=== PATIENT | male | born 1985 | race Caucasian/White ===

== ENCOUNTER 2016-12-18 13:44 | Emergency (ER) | payer BC, OTHER ==
[~2016-12-18] VITALS: Ht 170.2 cm; Wt 70.9 kg
[~2016-12-18 13:44] MED LIST: HMLI SC; INSU3INJ3 SQ
[2016-12-18 13:54] VITALS: TEMP 36.8; Ht 170.2 cm; Wt 70.9 kg
[2016-12-18] MEDS ORDERED: SODIUM CHLORIDE 0.9% 1000ML 1,000 ML IV STA ×2 (14:08→15:34)
[2016-12-18] MEDS ORDERED: NVLGIPEN SQ (14:09)
--- NOTE | 2016-12-18 14:12 | EMERGENCY ROOM VISIT NOTE ---
History Report prepared by Blayneibradha: Wendy King Under the Supervision of: Dr. Dulce Sweet D.O. First contact with patient: 13:59 Chief Complaint: VOMITING Stated Complaint: VOMITING NOT ABLE TO KEEP DOWN WATER Nursing Triage Summary: vomiting since this am unable to keep water done. last time this happened dx with diabetic ketoacidosis History of Present Illness The patient is a 31 year old male who presents to the Emergency Room with complaints of persistent vomiting since earlier this morning. He states he was "vomiting once every 10 minutes" when his symptoms were the most severe this morning. He denies any hematemesis. He also experienced some diarrhea this morning. He admits he did drink alcohol last night. He reports the last time something similar happened, around 2 to 3 years ago, he was diagnosed with diabetic ketoacidosis. His BSG this morning in the ED was approximately 208 and he was able to take his Insulin this morning. He notes he did experience cold symptoms this past week, but does not believe he had any fevers. The patient denies any recent abdominal pain, chest pain, shortness of breath or pain or swelling in his legs. He also denies any recent sick contacts, travel or eating anything unusual or suspect recently. Source of History: patient Onset: earlier this morning Position: other (global) Timing: other (persistent) Associated Symptoms: + cough (and cold symptoms), + nausea, + diarrhea, No fevers, No chest pain, No SOB, No abdominal pain Review of Systems See HPI for pertinent positives & negatives. A total of 10 systems reviewed and were otherwise negative. Past Medical & Surgical Medical Problems: (1) Diabetes mellitus Family History Cancer FHx: gallbladder disease Heart disease Hypertension Social History Smoking Status: Never Smoker Alcohol Use: occasionally Marital Status: single Housing Status: lives alone Occupation Status: employed Current/Historical Medications Scheduled Insulin Aspart (Novolog Flexpen), 1 DOSE SQ SLIDING SCALE Insulin Detemir (Levemir Flextouch), 18 UNITS SQ AMPM Allergies Coded Allergies: Banana (Verified Adverse Reaction, Mild, VOMITING, 12/18/16) Physical Exam Vital Signs Date Time Temp Pulse Resp B/P (MAP) Pulse Ox O2 Delivery O2 Flow Rate FiO2 12/18/16 17:25 62 16 132/76 100 Room Air 12/18/16 15:42 78 16 123/74 100 Room Air 12/18/16 13:54 36.8 93 18 143/86 100 Room Air Physical Exam GENERAL: alert, well appearing, well nourished, no distress, non-toxic EYE EXAM: normal conjunctiva, PERRL and EOM's grossly intact OROPHARYNX: no exudate, no erythema, lips, buccal mucosa, and tongue normal and mucous membranes are dry NECK: supple, no nuchal rigidity, no adenopathy, non-tender LUNGS: Clear to auscultation. Normal chest wall mechanics HEART: no murmurs, S1 normal and S2 normal ABDOMEN: abdomen soft, non-tender, normo-active bowel sounds, no masses, no rebound or guarding. BACK: Back is symmetrical on inspection and there is no deformity, no midline tenderness, no CVA tenderness. SKIN: no rashes and no bruising UPPER EXTREMITIES: upper extremities are grossly normal. LOWER EXTREMITIES: No pitting edema. NEURO EXAM: Normal sensorium, cranial nerves II-XII grossly intact, normal speech, no gross weakness of arms, no gross weakness of legs. Medical Decision & Procedures ER Provider Diagnostic Interpretation: Radiology results have been interpreted by the radiologist and reviewed by me. ABDOMEN 2VIEW W/PA CHEST RTN CLINICAL HISTORY: vomiting nausea COMPARISON STUDY: 09/23/2014 FINDINGS: The soft tissues, psoas shadows, renal outlines and intestinal gas pattern appear normal. There is no evidence for bowel obstruction. There is no evidence for free intraperitoneal air. No abnormal abdominal calcifications are seen. A frontal view of the chest was performed and is unremarkable. IMPRESSION: Normal study. The above report was generated using voice recognition software. It may contain grammatical, syntax or spelling errors. Electronically signed by: Royal French M.D. 12/18/2016 3:07 PM Laboratory Results 12/18/16 14:02 Red Blood Count 5.39, Mean Corpuscular Volume 83.9, Mean Corpuscular Hemoglobin 30.1, Mean Corpuscular Hemoglobin Concent 35.8, Mean Platelet Volume 9.5, Neutrophils (%) (Auto) 87.0, Lymphocytes (%) (Auto) 9.5, Monocytes (%) (Auto) 2.5, Eosinophils (%) (Auto) 0.7, Basophils (%) (Auto) 0.1, Neutrophils # (Auto) 7.71, Lymphocytes # (Auto) 0.84, Monocytes # (Auto) 0.22, Eosinophils # (Auto) 0.06, Basophils # (Auto) 0.01 12/18/16 14:02 Test 12/18/16 13:58 12/18/16 14:02 12/18/16 15:01 12/18/16 16:32 Bedside Glucose 208 mg/dl (70-99) White Blood Count 8.86 K/uL (4.8-10.8) Red Blood Count 5.39 M/uL (4.7-6.1) Hemoglobin 16.2 g/dL (14.0-18.0) Hematocrit 45.2 % (42-52) Mean Corpuscular Volume 83.9 fL (80-100) Mean Corpuscular Hemoglobin 30.1 pg (25-34) Mean Corpuscular Hemoglobin Concent 35.8 g/dl (32-36) Platelet Count 222 K/uL (130-400) Mean Platelet Volume 9.5 fL (7.4-10.4) Neutrophils (%) (Auto) 87.0 % Lymphocytes (%) (Auto) 9.5 % Monocytes (%) (Auto) 2.5 % Eosinophils (%) (Auto) 0.7 % Basophils (%) (Auto) 0.1 % Neutrophils # (Auto) 7.71 K/uL (1.4-6.5) Lymphocytes # (Auto) 0.84 K/uL (1.2-3.4) Monocytes # (Auto) 0.22 K/uL (0.11-0.59) Eosinophils # (Auto) 0.06 K/uL (0-0.5) Basophils # (Auto) 0.01 K/uL (0-0.2) RDW Standard Deviation 39.3 fL (36.4-46.3) RDW Coefficient of Variation 13.0 % (11.5-14.5) Immature Granulocyte % (Auto) 0.2 % Immature Granulocyte # (Auto) 0.02 K/uL (0.00-0.02) Anion Gap 11.0 mmol/L (3-11) Est Creatinine Clear Calc Drug Dose 98.1 ml/min Estimated GFR () 113.0 Estimated GFR (Non- 97.5 BUN/Creatinine Ratio 15.8 (10-20) Calcium Level 9.0 mg/dl (8.5-10.1) Magnesium Level 2.1 mg/dl (1.8-2.4) Total Bilirubin 0.4 mg/dl (0.2-1) Aspartate Amino Transf (AST/SGOT) 20 U/L (15-37) Alanine Aminotransferase (ALT/SGPT) 26 U/L (12-78) Alkaline Phosphatase 68 U/L (45-117) Total Protein 8.9 gm/dl (6.4-8.2) Albumin 4.3 gm/dl (3.4-5.0) Globulin 4.6 gm/dl (2.5-4.0) Albumin/Globulin Ratio 0.9 (0.9-2) Lipase 72 U/L (73-393) Arterial Blood pH 7.33 (7.35-7.45) Arterial Blood Partial Pressure CO2 33 mmHg (35-46) Arterial Blood Partial Pressure O2 101 mm/Hg (80-95) Arterial Blood HCO3 17 mmol/L (19-24) Arterial Blood Oxygen Saturation 97.4 % (90-95) Arterial Blood Base Excess -7.5 mEq/L (-9-1.8) Arterial Blood Gas Delivery ROOM AIR Vladimir Test POS (POS) Urine Color YELLOW Urine Appearance CLEAR (CLEAR) Urine pH 5.0 (4.5-7.5) Urine Specific [place] 1.033 (1.000-1.030) Urine Protein NEG (NEG) Urine Glucose (UA) 3+ (NEG) Urine Ketones 3+ (NEG) Urine Occult Blood NEG (NEG) Urine Nitrite NEG (NEG) Urine Bilirubin NEG (NEG) Urine Urobilinogen NEG (NEG) Urine Leukocyte Esterase NEG (NEG) Test 12/18/16 16:45 Lactic Acid Level 2.4 mmol/L (0.4-2.0) Laboratory results per my review. Medications Administered Medications (Trade) Dose Ordered Sig/Blake Route Start Time Stop Time Status Last Admin Dose Admin Ondansetron HCl (Zofran 8mg Iv) 8 mg NOW ONCE IV 12/18/16 14:15 12/18/16 14:16 DC 12/18/16 14:15 8 MG Sodium Chloride 1,000 ml @ 999 mls/hr Q1H1M STAT IV 12/18/16 14:08 12/18/16 15:08 DC 12/18/16 14:08 999 MLS/HR Sodium Chloride 1,000 ml @ 999 mls/hr Q1H1M STAT IV 12/18/16 15:34 12/18/16 16:34 DC 12/18/16 15:34 999 MLS/HR Ondansetron HCl (ZOFRAN ODT 4MG Home Pack) 1 homepack UD ONCE PO 12/18/16 17:45 12/18/16 17:46 DC 12/18/16 17:45 1 HOMEPACK ECG Indication: vomiting Rate (beats per minute): 82 Rhythm: normal sinus Findings: no acute ischemic change, no ectopy, other (Normal [place], normal QRS, normal intervals, normal axis) ED Course 1403: The patient was evaluated in room A4B. A complete history and physical exam was performed. 1408: NSS 1000 ml @ 999 mls/hr IV. 1415: Zofran 8 mg IV. 1455: I reevaluated the patient. He is looking well and resting comfortably. 1534: NSS 1000 ml @ 999 mls/hr IV. 1720: Nursing informed me the patients repeat lactic acid has improved. 1730: I reevaluated the patient. He has tolerated PO intake and is feeling well. I discussed his results and discharge instructions and he verbalized complete understanding and agreement. 1745: Zofran 4 mg 1 homepack PO. Medical Decision Prior records/ancillary studies reviewed. Triage Nursing notes reviewed. The patient's history was concerning for nausea, vomiting, diarrhea, and abdominal pain. Differential diagnosis: Etiologies such as gastroenteritis, food borne illness, infections, appendicitis , diverticulitis, inflammatory bowel disease, obstruction, GI bleed, biliary pathology, as well as others were entertained. No evidence of DKA. Pt markedly improved with IVF and rehydration. Mildly elevated lactate initially, improved following IVF. Pt able to tolerate po here. LIkely lactate from dehydration. Doubt occult infection. No other focal GI sx or findings. Vomiting likely from etoh. Doubt gi bleed, perf, colitis, mesenteric ischemia, bacteremia/sepsis. Doubt vascular or cardiac etiology. Discussed close f/u, hydration, sx to watch/return for, he verbalized understanding and was agreeable with plan. Medication Reconcilliation Current Medication List: was personally reviewed by me Blood Pressure Screening Patient's blood pressure: Elevated blood pressure Blood pressure disposition: Elevated BP felt to be situational Impression Primary Impression: Vomiting Additional Impressions: Dehydration Hyperglycemia Scribe Attestation The scribe's documentation has been prepared under my direction and personally reviewed by me in its entirety. I confirm that the note above accurately reflects all work, treatment, procedures, and medical decision making performed by me. Departure Information Dispostion Home / Self-Care Referrals No Doctor, Assigned (PCP) Patient Instructions Dehydration, My [facility], Vomiting - [facility] Additional Instructions Please drink plenty of water. Please checked your blood sugar frequently to monitor for any abnormalities or elevations. Please adhere to a diabetic diet. Please be very cautious when drinking alcohol as this could cause you to become more dehydrated which could push you into DKA. If you have any blood sugars that continued to go up, develop fevers, recurrent vomiting, abdominal pain, diarrhea, or you've any other new concerns, please return the emergency room. Please follow-up with your family doctor as a precaution. Problem Qualifiers Primary Impression: Vomiting Vomiting type: unspecified Vomiting Intractability: non-intractable Nausea presence: with nausea Qualified Codes: R11.2 - Nausea with vomiting, unspecified
[2016-12-18] MEDS ORDERED: ONDANSETRON 8 MG/54 ML D5W IV ONE (14:15)
[2016-12-18 14:21] LABS: BASO % 0.1 %; BASO ABS # 0.01 K/uL (0-0.2); COMPLETE YES; EOS % 0.7 %; HEMATOCRIT 45.2 % (42-52); IG% 0.2 %; LYMPH % 9.5 %; LYMPH ABS # 0.84 K/uL (1.2-3.4); MEAN CELL VOLUME 83.9 fL (80-100); MEAN CORPUSCULAR HEMOGLOBIN 30.1 pg (25-34); MEAN CORPUSCULAR HGB CONC 35.8 g/dl (32-36); MEAN PLATELET VOLUME 9.5 fL (7.4-10.4); MONO % 2.5 %; PLATELET COUNT 222 K/uL (130-400); RED BLOOD COUNT 5.39 M/uL (4.7-6.1); WHITE BLOOD COUNT 8.86 K/uL (4.8-10.8)
[2016-12-18 14:31] LABS: BUN/CREATININE RATIO 15.8 (10-20); CREATININE 1.02 mg/dl (0.60-1.40); MAGNESIUM 2.1 mg/dl (1.8-2.4); POTASSIUM 4.3 mmol/L (3.5-5.1)
[2016-12-18 14:34] LABS: ALB/GLOB RATIO 0.9 (0.9-2)
--- NOTE | 2016-12-18 15:08 | DIAGNOSTIC IMAGING REPORT ---
ABDOMEN 2VIEW W/PA CHEST RTN CLINICAL HISTORY: vomiting nausea COMPARISON STUDY: 09/23/2014 FINDINGS: The soft tissues, psoas shadows, renal outlines and intestinal gas pattern appear normal. There is no evidence for bowel obstruction. There is no evidence for free intraperitoneal air. No abnormal abdominal calcifications are seen. A frontal view of the chest was performed and is unremarkable. IMPRESSION: Normal study. The above report was generated using voice recognition software. It may contain grammatical, syntax or spelling errors. Electronically signed by: Royal French M.D. 12/18/2016 3:07 PM Dictated Date/Time: 12/18/2016 3:06 PM
[2016-12-18 15:11] LABS: ARTERIAL BLD GAS O2 SATURATION 97.4 % (90-95); ARTERIAL BLOOD GAS BASE EXCESS -7.5 mEq/L (-9-1.8); ARTERIAL BLOOD GAS HCO3 17 mmol/L (19-24); ARTERIAL BLOOD GAS PO2 101 mm/Hg (80-95); ARTERIAL BLOOD GAS pH 7.33 (7.35-7.45)
[2016-12-18 15:17] LABS: ALLEN TEST POS (POS); O2 ADMINISTRATION ROOM AIR
[2016-12-18 16:41] LABS: URINE APPEARANCE CLEAR (CLEAR); URINE BILIRUBIN NEG (NEG); URINE COLOR YELLOW; URINE NITRITE NEG (NEG); URINE SPECIFIC GRAVITY 1.033 (1.000-1.030); UROBILINOGEN NEG (NEG); ZZUR CULT IF INDIC CLEAN CATCH NO
[2016-12-18 16:42] LABS: MANUAL MICROSCOPIC REQUIRED? NO; REVIEW REQ? NO
[2016-12-18 17:25] VITALS: BP 132/76; PULSE 62; O2SAT 100
[2016-12-18] MEDS ORDERED: ONDANSETRON HOME PACK 4MG OD TAB PO ONE (17:45)
== END 2016-12-18 17:53 | disposition home or self-care (01) ==
LOC: C.EDB 13:45 → C.EDA 17:53
DX: R11.2 Nausea with vomiting, unspecified (principal); E86.0 Dehydration; R73.9 Hyperglycemia, unspecified; E11.9 Type 2 diabetes mellitus without complications; Z82.49 Family history of ischemic heart disease and other diseases of the circulatory system; Z79.4 Long term (current) use of insulin

== ENCOUNTER → 2017-03-31 | Outpatient (CLI) | payer OTHER ==
[~2017-03-31] MED LIST changes: -HMLI SC; +NVLGIPEN SQ
[2017-03-31 13:53] LABS: HEMOGLOBIN A1C 9.7 % (4.5-5.6)
[2017-03-31 14:37] LABS: ALBUMIN 3.8 gm/dl (3.4-5.0); ALT/SGPT 25 U/L (12-78); AST/SGOT 18 U/L (15-37); BLOOD UREA NITROGEN 12 mg/dl (7-18); CALCIUM 8.8 mg/dl (8.5-10.1); CARBON DIOXIDE 27 mmol/L (21-32); CREATININE 0.84 mg/dl (0.60-1.40); GLUCOSE 122 mg/dl (70-99); POTASSIUM 3.5 mmol/L (3.5-5.1); SODIUM 134 mmol/L (136-145)
[2017-03-31 14:48] LABS: ALKALINE PHOSPHATASE 54 U/L (45-117); LDL CHOLESTEROL (DIRECT) 141 mg/dl; TOTAL PROTEIN 7.7 gm/dl (6.4-8.2)
== END | disposition home or self-care (01) ==
LOC: C.LAB1850 11:38
PROVIDERS: ATTEND Physician Assistant
DX: E10.9 Type 1 diabetes mellitus without complications (principal)